=== PATIENT | female | born 1980 ===

== ENCOUNTER 2022-01-11 12:36 | Outpatient (RCR) | payer OTHER | END 2022-01-20 | LOC: WSOH | DX: S53.401D Unspecified sprain of right elbow, subsequent encounter (principal); Z90.49 Acquired absence of other specified parts of digestive tract; Z98.890 Other specified postprocedural states; Y99.0 Civilian activity done for income or pay ==

== ENCOUNTER 2022-02-18 15:45 | Outpatient (RCR) | payer OTHER | END 2022-02-19 | disposition home or self-care (01) | LOC: WSOT | DX: S53.401A Unspecified sprain of right elbow, initial encounter (principal) ==

== ENCOUNTER 2022-02-21 15:39 | Outpatient (RCR) | payer OTHER | END 2022-03-10 08:00 | disposition home or self-care (01) | LOC: WSOT 15:39 | DX: S53.401D Unspecified sprain of right elbow, subsequent encounter (principal); X58.XXXD Exposure to other specified factors, subsequent encounter ==

== ENCOUNTER 2022-03-01 14:46 | Outpatient (RCR) | payer OTHER | END 2022-03-01 16:15 | LOC: WSOH 14:46 | DX: S56.591A Other injury of other extensor muscle, fascia and tendon at forearm level, right arm, initial encounter (principal); Z90.49 Acquired absence of other specified parts of digestive tract; Z98.890 Other specified postprocedural states; Y99.0 Civilian activity done for income or pay ==

== ENCOUNTER 2022-12-19 16:00 | Outpatient (RCR) | payer OTHER | END 2022-12-20 | disposition home or self-care (01) | LOC: WSOT | DX: M77.10 Lateral epicondylitis, unspecified elbow (principal) ==

== ENCOUNTER 2023-01-19 15:45 | Outpatient (RCR) | payer OTHER | END 2023-01-20 | disposition home or self-care (01) | LOC: WSOT | DX: M77.11 Lateral epicondylitis, right elbow (principal) ==

== ENCOUNTER 2023-01-23 15:48 | Outpatient (RCR) | payer OTHER | END 2023-02-13 11:48 | disposition home or self-care (01) | LOC: WSOT 15:48 | DX: M77.11 Lateral epicondylitis, right elbow (principal) ==

== ENCOUNTER 2023-02-17 12:30 | Outpatient (RCR) | payer OTHER | END 2023-02-19 | disposition home or self-care (01) | LOC: WSPT | DX: Z98.890 Other specified postprocedural states (principal) ==